=== PATIENT | male | born 1950 | race Caucasian/White ===

== ENCOUNTER 2017-10-11 08:19 | Emergency (ER) | payer BC, OTHER ==
[~2017-10-11] VITALS: Ht 162.6 cm; Wt 70.3 kg
[2017-10-11 08:20] VITALS: BP_SYST 163
[2017-10-11 09:30] LABS: HEMATOCRIT 40.2 % (36-54); HEMOGLOBIN 13.3 g/dL (14.0-18.0); MEAN CORPUSCULAR HEMOGLOBIN 31 pg (27-31); MEAN CORPUSCULAR HGB CONC 33 % (32-36); MEAN CORPUSCULAR VOLUME 93 fL (79.0-98.0); PLATELET COUNT (AUTO) 278 K/uL (130-430); RED BLOOD CELL COUNT(AUTO) 4.33 MIL/uL (4.2-6.2); WHITE BLOOD COUNT (AUTO) 8.4 K/uL (4.8-10.8)
[2017-10-11 09:44] LABS: CALCIUM 10.2 mg/dL (8.4-11.0); CREATININE 1.16 mg/dL (0.55-1.30); POTASSIUM 4.4 mmol/L (3.5-5.1)
[2017-10-11 09:49] LABS: BASOPHILS % (MANUAL) 0 % (0-2); EOSINOPHILS % (MANUAL) 1 % (0-7); LYMPHOCYTES % (MANUAL) 30 % (20-46); MONOCYTES % (MANUAL) 5 % (0-11)
[2017-10-11 09:50] LABS: ALBUMIN 4.1 g/dL (3.4-4.8); TOTAL BILIRUBIN 0.7 mg/dL (0.0-1.0)
[2017-10-11 10:10] LABS: BILIRUBIN,URINE NEGATIVE (NEGATIVE); CLARITY/URINE CLEAR (CLEAR); COLOR,URINE YELLOW (YELLOW); GLUCOSE,URINE 3+ (NEGATIVE); KETONES,URINE NEGATIVE (NEGATIVE); LEUKOCYTE ESTERASE ,URINE NEGATIVE (NEGATIVE); NITRITE, URINE NEGATIVE (NEGATIVE); PROTEIN URINE 2+ (NEGATIVE); UROBILINOGEN,URINE 0.2 (0.2-1.0)
[2017-10-11 10:11] LABS: BLOOD, URINE TRACE (NEGATIVE)
[2017-10-11 10:18] LABS: BACTERIA,URINE FEW /HPF (None Seen); WBC,URINE 0-3 /HPF (0-3)
[2017-10-11 10:26] VITALS: BP_SYST 155
== END 2017-10-11 10:22 | disposition home or self-care (01) ==
LOC: SED 08:19
DX: R10.2 Pelvic and perineal pain (principal); R11.0 Nausea; E11.9 Type 2 diabetes mellitus without complications
CPT/HCPCS: 36415; 72110; 72170-TC; 80053; 81000-TC; 85007; 85027; 99285